=== PATIENT | female | born 1980 | race Caucasian/White ===

== ENCOUNTER 2017-06-19 00:34 | Emergency (ER) | payer BC ==
[~2017-06-19] VITALS: Ht 160 cm; Wt 136.4 kg
[~2017-06-19 00:34] MED LIST: BCP TD; BP MED; CIPRO 500MG TA500 MG PO; FLAGYL500 MG PO; FLONASE NASAL S16 GM NS; FORTAMET1000 MG PO; HCTZ 25MG TAB25 MG PO; LEVAQUIN 750MG750 M1 PO; LORTAB 5/500 501 TAB PO; MOTRIN 600600 MG/TAB PO; NORCO 325 MG-7.1 TAB PO; PERCOCET 325 MG1 TA2 PO; PRINIVIL20 MG PO; PRINZIDE 25 MG-1 TAB PO; SUDAFED30 MG PO; ZOFRAN ODT8 MG PO
[2017-06-19 00:37] VITALS: BP 181/112; TEMP 98.2
[2017-06-19] MEDS ORDERED: NORCO 325 MG-51 TAB PO (01:11)
[2017-06-19 01:24] VITALS: PULSE 101
== END 2017-06-19 01:24 | disposition home or self-care (01) ==
LOC: COL.ER 00:34
DX: R10.32 Left lower quadrant pain (principal); F17.210 Nicotine dependence, cigarettes, uncomplicated; Z90.710 Acquired absence of both cervix and uterus

== ENCOUNTER → 2018-03-14 | Outpatient (CLI) | payer BC ==
[~2018-03-14] VITALS: Ht 163.8 cm; Wt 127.2 kg
[~2018-03-14] MED LIST changes: +D3-5050000 IU PO; +NORCO 325 MG-51 TAB PO; +PROZAC 20MG20 MG PO; +ZESTORETIC 25 M1 TAB PO
[2018-03-14 08:09] VITALS: BP 122/56; PULSE 76
== END ==
LOC: LIGHT 07:55
DX: E88.81 Metabolic syndrome and other insulin resistance (principal); F31.9 Bipolar disorder, unspecified; E28.2 Polycystic ovarian syndrome; E66.01 Morbid (severe) obesity due to excess calories; Z68.42 Body mass index [BMI] 45.0-49.9, adult; Z71.3 Dietary counseling and surveillance
CPT/HCPCS: G0463

== ENCOUNTER → 2018-04-03 | Outpatient (CLI) | payer BC | LOC: LIGHT 08:39 | DX: Z09 Encounter for follow-up examination after completed treatment for conditions other than malignant neoplasm (principal) ==

== ENCOUNTER → 2018-04-09 | Outpatient (CLI) | payer BC | LOC: LIGHT 10:16 | DX: E66.9 Obesity, unspecified (principal); Z71.3 Dietary counseling and surveillance ==

== ENCOUNTER → 2018-05-09 | Outpatient (CLI) | payer BC ==
[~2018-05-09] VITALS: Ht 163.8 cm; Wt 131.8 kg
[2018-05-09 12:56] VITALS: BP 130/60; PULSE 72
== END ==
LOC: LIGHT 12:41
DX: E88.81 Metabolic syndrome and other insulin resistance (principal); E28.2 Polycystic ovarian syndrome; F32.9 Major depressive disorder, single episode, unspecified; E66.01 Morbid (severe) obesity due to excess calories; Z68.42 Body mass index [BMI] 45.0-49.9, adult; Z71.3 Dietary counseling and surveillance
CPT/HCPCS: G0463

== ENCOUNTER → 2018-07-04 | Outpatient (CLI) | payer BC ==
[~2018-07-04] VITALS: Ht 163.8 cm; Wt 134.0 kg
[2018-07-04 10:39] VITALS: BP 110/68; PULSE 88
== END ==
LOC: LIGHT 06-13 10:50
DX: E88.81 Metabolic syndrome and other insulin resistance (principal); E28.2 Polycystic ovarian syndrome; F32.9 Major depressive disorder, single episode, unspecified; E66.01 Morbid (severe) obesity due to excess calories; Z68.42 Body mass index [BMI] 45.0-49.9, adult; Z71.3 Dietary counseling and surveillance
CPT/HCPCS: G0463

== ENCOUNTER → 2018-08-15 | Outpatient (CLI) | payer BC ==
[~2018-08-15] VITALS: Ht 163.8 cm; Wt 137.7 kg
[~2018-08-15] MED LIST changes: +FASTIN30 MG PO
[2018-08-15 09:09] VITALS: BP 120/82; PULSE 80
== END ==
LOC: LIGHT 08:49
DX: E88.81 Metabolic syndrome and other insulin resistance (principal); E28.2 Polycystic ovarian syndrome; F32.9 Major depressive disorder, single episode, unspecified; E66.01 Morbid (severe) obesity due to excess calories; Z68.43 Body mass index [BMI] 50.0-59.9, adult; Z71.3 Dietary counseling and surveillance
CPT/HCPCS: G0463